=== PATIENT | female | born 1980 | race Hispanic/Latino ===

== ENCOUNTER 2025-03-04 15:16 | Emergency (ER) | payer SELFPAY ==
[~2025-03-04] VITALS: Ht 149.9 cm; Wt 83.0 kg
[2025-03-04 15:51] LABS: BASOPHILS # (AUTO) 0.08 K/uL (0.00-0.20); BASOPHILS % (AUTO) 0.6 % (0.0-5.0); EOSINOPHILS # (AUTO) 0.15 K/uL (0.00-0.70); EOSINOPHILS % (AUTO) 1.1 % (0.0-8.0); HEMATOCRIT 38.9 % (36-48); IMMATURE GRANULOCYTE ABSOLUTE 0.04 K/uL (0-1); LYMPHOCYTES # (AUTO) 2.7 K/uL (1.0-4.8); LYMPHOCYTES % (AUTO) 20.6 % (21.0-51.0); MEAN CORPUSCULAR HEMOGLOBIN 28.8 pg (27.0-33.0); MEAN CORPUSCULAR HGB CONC 33.4 g/dL (32.0-36.0); MEAN CORPUSCULAR VOLUME 86.1 fL (79-99); MONOCYTES % (AUTO) 7.9 % (3.0-13.0); NEUTROPHILS # (AUTO) 9.1 K/uL (1.8-7.7); NEUTROPHILS % (AUTO) 69.5 % (40.0-77.0); PLATELET COUNT (AUTO) 328 K/uL (130-400); RED BLOOD CELL COUNT(AUTO) 4.52 MIL/uL (4.00-5.50); RED CELL DISTRIBUTION WIDTH 12.7 % (11.0-15.5); WHITE BLOOD COUNT (AUTO) 13.1 K/uL (4.8-10.8)
[2025-03-04] MEDS: 0.9%NACL 1000ML 1,000 ML IV STA (16:09)
[2025-03-04] MEDS: DiphenhydrAMINE HCL 50 MG/ML VIAL IV STA (16:09)
[2025-03-04] MEDS: metoCLOPRAmide 10 MG/2 ML VIAL IVP STA (16:10)
[2025-03-04 16:13] LABS: CREATININE 0.6 mg/dL (0.5-1.0)
[2025-03-04 16:54] LABS: SARS-CoV-2, RNA, NAAT NEGATIVE SARS CoV-2 (NEGATIVE)
--- NOTE | 2025-03-04 16:55 | HMCIMG ---
CT HEAD/BRAIN W/O CONTRAST HISTORY: Headaches and dizziness COMPARISON: None TECHNIQUE: Multiple sequential axial images of the head were obtained from the base of the skull through vertex. Patient was not given contrast through intravenous route. FINDINGS: The ventricles and extraventricular CSF spaces are nondilated for patient's age. There is no midline shift, mass effect or herniation. No acute intracranial bleed is seen. Visualized portion of the paranasal sinuses are grossly within normal limits. IMPRESSION: 1. No acute intracranial bleed is seen. CT was performed with one or more following dose reduction techniques: automated exposure control, adjustment of the mA and kv according to patient's size, or use of a iterative reconstruction technique.
[2025-03-04 17:00] LABS: INFLUENZA TYPE A Negative For Type A (NEGATIVE); INFLUENZA TYPE B Negative For Type B (NEGATIVE)
--- NOTE | 2025-03-04 17:48 | ERN ---
ED Note History of Present Illness Stated Complaint: HEADACHE AND NECK PAIN AND NAUSEOUS Chief Complaint: Headache Time Seen by MD: 15:19 Time Seen by Midlevel: 15:22 Dictation: 44-year-old female coming in with complaints of headache, photophobia, emma nophobia for the last two weeks. When asked the patient why she decided to come in today states that she brought her son in for another complaining decided to be evaluated now that she is already here. Denies any blurry vision, dizziness, vision changes. Allergies: Coded Allergies: No Known Allergies (Unverified Allergy, Unknown, 03/04/25) Past Medical History Past Medical History: A-Fib, Heart Disease, Hypertension, Hypothyroid Surgical History: Cholecystectomy LMP: Feb 17, 2025 Review of System Dictation Constitutional: Negative for fever,chills, and weight loss Eyes: Negative for injury, pain,redness, and discharge ENT: Negative for injury,pain or swelling Cardiovascular: Negative for chest pain, palpitations, and edema Respiratory: Negative for shortness of breath, cough, and wheezing, Abdomen/GI: Negative for abdominal pain, nausea, vomiting, diarrhea, and constip ation Back: Negative for injury and pain : Negative for injury, bleeding and discharge MS/Extremity: Negative for injury and deformity Skin: Negative for rash, and discoloration Neuro: Complaining of headache, no weakness, no numbness, no tingling, and no seizure Psych: Negative for suicide ideation, homicidal ideation, and hallucinations Review of Systems: was completed Initial Vital Sign VS Vital Signs Date Time Temp Pulse Resp B/P (MAP) Pulse Ox O2 Delivery O2 Flow Rate FiO2 03/04/25 15:18 98.4 85 16 153/94 97 Room Air 0 03/04/25 16:18 21 Physical Exam Dictation General: awake, alert, NAD Head/Face: Normocephalic, atraumatic Eyes: PERRL, EOMI, vision at baseline ENT: oral cavity clear, TMs clear, no signs of infection Neck: Trachea midline, supple, no nuchal rigidity Cardiovascular: RRR, normal S1/S2, No MRGs, no JVD Respiratory: CTAB, no respiratory distress, No rales or wheezes Abdomen: Soft, non-tender, non-distended, normal bowel sounds, no guarding or rebound. Skin: Warm, dry, normal turgor, no rash MS/Extremity: Pulses equal, no cyanosis, neurovascular intact, FROM Neuro: COAx4, GCS 15, strength 5/5, CN 2-12 intact, normal cerebellar exam, n ormal gait, Psych: Normal behavior, mood, and affect normal Results (Laboratory/Radiology) Laboratory/Radiology Laboratory Tests Test 03/04/25 15:43 03/04/25 16:17 White Blood Count 13.1 K/uL (4.8-10.8) H Red Blood Count 4.52 MIL/uL (4.00-5.50) Hemoglobin 13.0 g/dL (12.0-16.0) Hematocrit 38.9 % (36-48) Mean Corpuscular Volume 86.1 fL (79-99) Mean Corpuscular Hemoglobin 28.8 pg (27.0-33.0) Mean Corpuscular Hemoglobin Concent 33.4 g/dL (32.0-36.0) Red Cell Distribution Width 12.7 % (11.0-15.5) Platelet Count 328 K/uL (130-400) Mean Platelet Volume 9.5 fL (7.5-10.5) Immature Granulocyte % (Auto) 0.3 % (0-1) Neutrophils (%) (Auto) 69.5 % (40.0-77.0) Lymphocytes (%) (Auto) 20.6 % (21.0-51.0) L Monocytes (%) (Auto) 7.9 % (3.0-13.0) Eosinophils (%) (Auto) 1.1 % (0.0-8.0) Basophils (%) (Auto) 0.6 % (0.0-5.0) Neutrophils # (Auto) 9.1 K/uL (1.8-7.7) H Lymphocytes # (Auto) 2.7 K/uL (1.0-4.8) Monocytes # (Auto) 1.0 K/uL (0.1-1.0) Eosinophils # (Auto) 0.15 K/uL (0.00-0.70) Basophils # (Auto) 0.08 K/uL (0.00-0.20) Absolute Immature Granulocyte (auto 0.04 K/uL (0-1) Nucleated Red Blood Cells 0.0 % (0.0-0.19) Sodium Level 138 mmol/L (136-145) Potassium Level 4.0 mmol/L (3.5-5.1) Chloride Level 100 mmol/L (101-111) L Carbon Dioxide Level 31 mmol/L (21-32) Blood Urea Nitrogen 18 mg/dL (7-18) Creatinine 0.6 mg/dL (0.5-1.0) Glomerular Filtration Rate Calc 113 mL/min (>90) Random Glucose 103 mg/dL (70-105) Total Calcium 9.4 mg/dL (8.5-10.1) Human Chorionic Gonadotropin, Quant 0 mIU/mL (0-5) Influenza Type A Antigen Negative For Type A Influenza Type B Antigen Negative For Type B SARS-CoV-2, RNA, NAAT NEGATIVE SARS CoV-2 Labs Reviewed?: Yes CT Scan Comment: [place] [id number] [place] [address] IMAGING REPORT Signed PATIENT: TAJ HUGHES MR#: [id number] : 1980 SEX: F AGE: 44 LOCATION: [facility] ORDER 1525 STATUS: [facility] REPORT#: [id number] SERVICE 1523 REASON: headache, dizziness ORDERING PHYSICIAN: SANDRA CROSS NP PROCEDURE: HEAD WO - CT HEAD/BRAIN W/O CONTRAST CT HEAD/BRAIN W/O CONTRAST HISTORY: Headaches and dizziness COMPARISON: None TECHNIQUE: Multiple sequential axial images of the head were obtained from the base of the skull through vertex. Patient was not given contrast through intravenous route. FINDINGS: The ventricles and extraventricular CSF spaces are nondilated for patient's age. There is no midline shift, mass effect or herniation. No acute intracranial bleed is seen. Visualized portion of the paranasal sinuses are grossly within normal limits. IMPRESSION: 1. No acute intracranial bleed is seen. CT was performed with one or more following dose reduction techniques: automated exposure control, adjustment of the mA and kv according to patient's size, or use of a iterative reconstruction technique. DICTATED BY: MERCEDES GARCIA MD DATE: 03/04/251651 ELECTRONICALLY SIGNED BY: MERCEDES GARCIA MD DATE: 06/23/25 1655 ED Course ED Course Orders Procedure Category Date Status Time Cbc With Differential LAB 03/04/25 Complete 15:23 Basic Metabolic Panel LAB 03/04/25 Complete 15:23 Hcg,Quantitative LAB 03/04/25 Complete 15:23 Influenza Type A & B, LAB 03/04/25 Complete Rapid 15:23 Covid Rna Naat LAB 03/04/25 Complete 15:23 Ct Head/Brain W/O CT 03/04/25 Resulted Contrast 15:23 0.9%Nacl 1000ml (Ns PHA 03/04/25 Complete 1000ml) 15:23 Metoclopramide 10 PHA 03/04/25 Complete Mg/2 Ml Vial (Reglan 1 15:23 Diphenhydramine Hcl PHA 03/04/25 Complete (Benadryl Inj) 15:23 Current Medications Medications (Trade) Dose Ordered Sig/Jair Route PRN Reason Start Time Stop Time Status Last Admin Dose Admin Diphenhydramine HCl (BENAdryl INJ) 25 mg ONCE STAT IV 03/04/25 15:23 03/04/25 15:27 DC 03/04/25 16:09 Metoclopramide HCl (regLAN 10MG IV) 10 mg ONCE STAT IVP 03/04/25 15:23 03/04/25 15:27 DC 03/04/25 16:10 Sodium Chloride 1,000 ml @ 1,000 mls/hr Q1H STAT IV 03/04/25 15:23 03/04/25 16:22 DC 03/04/25 16:09 Vital Signs Date Time Temp Pulse Resp B/P (MAP) Pulse Ox O2 Delivery O2 Flow Rate FiO2 03/04/25 16:18 98.4 72 18 149/81 98 Room Air* 0 21 03/04/25 15:18 98.4 85 16 153/94 97 Room Air 0 Medical Decision Making MDM MDM: 44-year-old female coming in with complaints of headache, photophobia, phonophobia for the last two weeks. When asked the patient why she decided to come in today states that she brought her son in for another complaining decided to be evaluated now that she is already here. Blood work unremarkable. CT scan of the head shows no acute findings. Discussed with the patient's more than likely this is more of a tension or migraine headache and he is to follow up outpatient with PCP. Educated on signs and symptoms when to return back to the ER. Patient verbalized understanding, answered all questions. Denies any blurry vision, dizziness, vision changes. Differential diagnosis: Migraine, tension headache, dehydration Rationale: Tests considered and ordered secondary to shared decision making incl ude: Previous outside records reviewed: Old ER visits. Risk of complication and/or morbidity or mortality of patient management: None Medications-Per medication reconciliation Need for hospitalization: Patient does not meet criteria for hospitalization. Need for emergency major/minor surgery: No There are no social concerns with this patient. Prescription drug management Prescriptions will include symptomatic care Patient's prior external medical records from other ER visits were reviewed by me as indicated. Prior testing and results from previous visits were reviewed. Prior tests were taken into account with medical decision making and resource utilization, independent historian/historians were used to obtain complete medical history. I independently interpreted the test that were performed, results were reviewed by me and considered findings on radiology if ordered. Medical management and examination interpretation discussions were had by me with other qualified healthcare professionals as indicated for the patient's care. DX & DISP Disposition: Discharge Departure Impression: Primary Impression: Headache Condition: Stable Additional Instructions: Your CAT scan was normal. Blood work it was normal two. Please take Tylenol or ibuprofen [id number] for pain control and follow up with your PCP. If you start to develop any fevers, nausea vomiting vision changes return back to the emergency room. Referrals: SELF,REFERRAL (PCP) Time of Disposition: 17:47 I have reviewed the case, and I agree with, Diagnosis and Plan SANDRA CROSS NP Mar 04, 2025 17:48
[2025-03-04 18:21] VITALS: BP 146/77; PULSE 70; RESP 20; TEMP 98.3; O2SAT 98
== END 2025-03-04 18:26 | disposition home or self-care (01) ==
LOC: EDH 15:16
DX: R51.9 Headache, unspecified (principal); R10.2 Pelvic and perineal pain; I11.9 Hypertensive heart disease without heart failure; I48.91 Unspecified atrial fibrillation; E03.9 Hypothyroidism, unspecified; Z20.822 Contact with and (suspected) exposure to COVID-19; Z90.49 Acquired absence of other specified parts of digestive tract
CPT/HCPCS: 99285; 96374; 70450; 96361; 87635; 96375; 80048; 84702; 85025; 87804 ×2; 36415; J1200; J7030; J2765